=== PATIENT | female | born 1975 | race African-American/Black ===

== ENCOUNTER 2016-11-29 10:40 | Emergency (ER) | payer OTHER ==
[2016-11-29] MEDS ORDERED: NS 0.9% 1000 ML* 1,000 ML BOLUS ONE (11:16)
[2016-11-29] MEDS ORDERED: diPHENhydraMINE IV* 50 MG/ML 1 ml VIAL (BENADRYL) IV ONE (11:16)
[2016-11-29] MEDS ORDERED: Morphine INJ* 2 MG/ML 1 ML CARPUJECT IV ONE (11:17)
[2016-11-29] MEDS ORDERED: Ondansetron INJ* 2 MG/ML VIAL IV ONE (11:17)
--- NOTE | 2016-11-29 12:11 | UC ---
Headache HPI - HPI Summary HPI Summary: 41 YO FEMALE WITH A HX OF MIGRAINES SINCE A TEEN NO F/C (+) PHOTO/PHONOPHOBIA N/V TAKING EXCESSIVE DOSES OF ALEVE WITHOUT RELIEF NO CT OF BRAIN RECENTLY...ONE DONE A TEEN - History Of Current Complaint Chief Complaint: UCHeadache Stated Complaint: MIGRAINE HEADACHE Time Seen by Provider: 11/29/16 11:10 Hx Obtained From: Patient Hx Last Menstrual Period: 11/07/16 Onset/Duration: Gradual Onset, Lasting Days - 3 Onset Of Symptoms: Gradual Initially Headache Was: Severe Currently Pain Is: Severe Pain Intensity: 8 Pain Scale Used: 0-10 Numeric Timing: Constant Character: Throbbing Location of Headache: Temporal Allevating Factors: Nothing Associated Signs And Symptoms: Positive: Nausea, Vomiting. Negative: Dizziness , Seizure, Sinus Pressure, Neck Pain, Neck Stiffness, Decreased LOC, Visual Changes - Risk Factors SAH Risk Factors: -[place] SDH Risk Factors: Negative Temporal Arteritis Risk Factors: Negative - Allergies/Home Medications Allergies/Adverse Reactions: Allergies Allergy/AdvReac Type Severity Reaction Status Date / Time No Known Allergies Allergy Verified 11/29/16 11:02 Home Medications: Home Medications Cyclobenzaprine TAB* [Flexeril TAB*] 10 mg PO TID PRN 11/29/16 [History Confirmed 11/29/16] Divalproex DR TAB(*) [Depakote DR(*)] 500 mg PO BID 11/29/16 [History Confirmed 11/29/16] Lisinopril/HCTZ 20/12.5(NF) [Zestoretic 20/12.5(NF)] 1 tab PO DAILY 11/29/16 [ History Confirmed 11/29/16] Zolpidem TAB* [Ambien TAB*] 10 mg PO BEDTIME PRN 11/29/16 [History Confirmed 07/08] traZODone TAB* [Desyrel TAB*] 100 mg PO BEDTIME 11/29/16 [History Confirmed 07/08] PMH/Surg Hx/FS Hx/Imm Hx Endocrine History Of: Denies: Diabetes, Thyroid Disease, Hyperthyroidism, Hypothyroidism, Dyslipidemia Cardiovascular History Of: Reports: Cardiac Disorders - heart murmur, Hypertension Denies: Pacemaker/ICD, Myocardial Infarction, Congestive Heart Failure, Atrial Fibrillation, Deep Vein Thrombosis, Bleeding Disorders Respiratory History Of: Denies: COPD, Asthma GI/ History Of: Denies: Gastroesophageal Reflux, Ulcer, Gastrointestinal Bleed, Gall Bladder Disease, Kidney Stones, Diverticulitis, Renal Disease, Urosepsis Neurological History Of: Denies: TIA, CVA, Dementia, Seizures, Migraine Psychological History Of: Reports: Bipolar Disorder Denies: Anxiety, Depression, Schizophrenia, Post Traumatic Stress Disorder Cancer History Of: Denies: Lung Cancer, Colorectal Cancer, Breast Cancer, Prostate Cancer, Cervical Cancer - Surgical History Surgical History: Yes Surgery Procedure, Year, and Place: ; tonsils - Family History Known Family History: Positive: Hypertension, Other - CVA - Social History Alcohol Use: Occasionally Substance Use Type: None Substance Use Comment - Amount & Last Used: occassional Smoking Status (MU): Light Every Day Tobacco Smoker Type: Cigarettes Amount Used/How Often: 1/ PPD Length of Time of Smoking/Using Tobacco: 15 + yrs - Immunization History Most Recent Influenza Vaccination: Not the Season Review of Systems Constitutional: Negative Skin: Negative Eyes: Photophobia ENT: Negative Respiratory: Negative Cardiovascular: Negative Gastrointestinal: Vomiting Genitourinary: Negative Motor: Negative Neurovascular: Negative Musculoskeletal: Negative Neurological: Headache Psychological: Negative All Other Systems Reviewed And Are Negative: Yes Physical Exam Triage Information Reviewed: Yes Appearance: Well-Nourished, Pain Distress Vital Signs: Initial Vital Signs Temp 99.6 F 11/29/16 10:59 Pulse 80 11/29/16 10:59 Resp 18 11/29/16 10:59 BP 160/110 11/29/16 10:59 Pulse Ox 100 11/29/16 10:59 Vital Signs Reviewed: Yes Eyes: Positive: Conjunctiva Clear ENT: Positive: Normal ENT inspection Dental: Negative: Abscess @ Neck: Positive: Supple, Nontender, No Lymphadenopathy Respiratory: Positive: Lungs clear, Normal breath sounds, No respiratory distress, No accessory muscle use Cardiovascular: Positive: RRR, No Murmur Musculoskeletal: Positive: ROM Intact, No Edema Neurological: Positive: Alert, Muscle Tone Normal, Other: - gcs 15/15, NON FOCAL NEURO EXAM Psychological: Positive: Age Appropriate Behavior, Abnormal Response To Family Skin Exam: Normal Re-Evaluation - Re-Evaluation First Eval Re-Evaluation Time: 12:45 Change: Improved - WANTS TO GO HOME....PAIN NOW 01/29 Headache Course/Dx - Course Course Of Treatment: ct (-). advised not to take aleve for a week - Differential Dx/Diagnosis Provider Diagnoses: ACUTE HEADACHE (?MIGRAINE) Discharge - Discharge Plan Condition: Improved Disposition: HOME Prescriptions: Butalb/Acetamin/Caff TAB* [Fioricet TAB*] 1 - 2 tab PO Q4HR PRN #12 tab MDD 6 PRN Reason: Headache Ondansetron TAB* [Zofran Tab*] 4 mg PO Q6H PRN #10 tab PRN Reason: Nausea Patient Education Materials: Migraine Headache (ED) Forms: *Work Release Referrals: SHAD Ohara [Primary Care Provider] - 1 Day (if not better)
[2016-11-29 12:30] VITALS: BP 173/92
--- NOTE | 2016-11-29 12:34 | RAD ---
HISTORY: Headache COMPARISONS: June 13, 2007 TECHNIQUE: Multiple contiguous axial CT scans were obtained of the head without intravenous contrast. FINDINGS: HEMORRHAGE/INFARCT: There is no hemorrhage or acute infarct. MASSES/SHIFT: There is no mass or shift. EXTRA-AXIAL SPACES: There are no extra-axial fluid collections. SULCI AND VENTRICLES: The sulci and ventricles are normal in size and position for the patient's stated age. CEREBRUM: There are no focal parenchymal abnormalities. BRAINSTEM: There are no focal parenchymal abnormalities. CEREBELLUM: There are no focal parenchymal abnormalities. VESSELS: The vessels are grossly normal. PARANASAL SINUSES: The paranasal sinuses are clear. ORBITS: The orbits are unremarkable. BONES AND SOFT TISSUE: No bone or soft tissue abnormalities are noted. OTHER: None IMPRESSION: NO ACUTE INTRACRANIAL PATHOLOGY.
== END 2016-11-29 13:02 | disposition home or self-care (01) ==
LOC: UCCORT 10:40
DX: R51 Headache (principal); I10 Essential (primary) hypertension; R01.1 Cardiac murmur, unspecified; F31.9 Bipolar disorder, unspecified; F17.210 Nicotine dependence, cigarettes, uncomplicated
CPT/HCPCS: 70450; 96361; 96374; 96375; 99212; G0463; J1200; J2270; J2405

== ENCOUNTER 2017-10-11 18:44 | Emergency (ER) | payer OTHER ==
--- NOTE | 2017-10-11 19:31 | UC ---
Headache HPI - HPI Summary HPI Summary: 42 year old female presents with worse headache of her life and hypertension > 200/100. I will send her to the ER. - History Of Current Complaint Stated Complaint: MIGRAINE Time Seen by Provider: 10/11/17 19:30 Hx Obtained From: Patient Hx Last Menstrual Period: 11/07/16 Onset/Duration: Sudden Onset Initially Headache Was: Initial Pain Scale(0-10)= - 8, Severe Currently Pain Is: Current Pain Scale(0-10)= - 8, Severe - Allergies/Home Medications Allergies/Adverse Reactions: Allergies Allergy/AdvReac Type Severity Reaction Status Date / Time No Known Allergies Allergy Verified 10/11/17 19:27 PMH/Surg Hx/FS Hx/Imm Hx Previously Healthy: Yes - Surgical History Surgical History: Yes Surgery Procedure, Year, and Place: ; tonsils - Family History Known Family History: Positive: Hypertension, Other - CVA - Social History Alcohol Use: Occasionally Substance Use Type: None Substance Use Comment - Amount & Last Used: occassional Smoking Status (MU): Light Every Day Tobacco Smoker Type: Cigarettes Amount Used/How Often: 1/7 PPD Length of Time of Smoking/Using Tobacco: 15 + yrs - Immunization History Most Recent Influenza Vaccination: Not the 2016/2016 Season Review of Systems Constitutional: Negative Skin: Negative Eyes: Negative ENT: Negative Respiratory: Negative Cardiovascular: Negative Gastrointestinal: Negative Genitourinary: Negative Motor: Negative Neurovascular: Negative Musculoskeletal: Negative Neurological: Headache Psychological: Negative All Other Systems Reviewed And Are Negative: Yes Physical Exam Triage Information Reviewed: Yes Eye Exam: Normal ENT Exam: Normal Dental Exam: Normal Neck exam: Normal Neck: Positive: 1 Respiratory Exam: Normal Cardiovascular Exam: Normal Abdominal Exam: Normal Musculoskeletal Exam: Normal Neurological Exam: Normal Psychological Exam: Normal Skin Exam: Normal Headache Course/Dx - Differential Dx/Diagnosis Provider Diagnoses: HYPERTENSION. HEADACHE Discharge - Discharge Plan Condition: Stable Disposition: OTHER Discharge Disposition Comment: PATIENT SUGESTED TO GO TO THE ER. Patient Education Materials: Hypertension (ED), General Headache (ED) Referrals: SHAD Ohara [Medical Doctor] - Additional Instructions: patient suggested to go to the er.
[2017-10-11 19:34] VITALS: BP 218/93
== END 2017-10-11 19:47 ==
LOC: UCCORT 18:44
DX: R51 Headache (principal); I10 Essential (primary) hypertension; F17.210 Nicotine dependence, cigarettes, uncomplicated
CPT/HCPCS: 99212; G0463

== ENCOUNTER 2018-02-08 21:00 | Emergency (ER) | payer OTHER ==
[2018-02-08 21:15] VITALS: BP 197/126
--- NOTE | 2018-02-08 21:56 | UC ---
General HPI - HPI Summary HPI Summary: This is a 42 yo female with HTN and chronic back pain who presents with multiple complaints. 1. She has had sinus congestion, cough and sinus pain x 2 weeks. No fevers 2. She has a rash that has become progressively worse that she believed was due to ringworm. She has trialed multiple OTC creams without relief. She is complaining of severe itching. The rash started as a patch on her R shoulder a couple of weeks ago. 3. She has previously been treated for HTN, but lost her PCP and ran out of meds last month. She is unsure of what she has taken previously. She has occasional HAs, no CP. Occasional SOB, but no edema. - History of Current Complaint Chief Complaint: UCRespiratory Stated Complaint: POSS RINGWORM,&ST,COUGH Hx Last Menstrual Period: 01/16/18 Pain Intensity: 8 - Allergy/Home Medications Allergies/Adverse Reactions: Allergies Allergy/AdvReac Type Severity Reaction Status Date / Time No Known Allergies Allergy Verified 02/08/18 21:14 Home Medications: Home Medications Ibuprofen TAB* [Motrin TAB* 800 MG] 800 mg PO ONCE PRN 02/08/18 [History Confirmed 02/08/18] PMH/Surg Hx/FS Hx/Imm Hx Cardiovascular History: Hypertension - Surgical History Surgical History: Yes Surgery Procedure, Year, and Place: ; tonsils - Family History Known Family History: Positive: Hypertension, Other - CVA - Social History Alcohol Use: Occasionally Substance Use Type: None Substance Use Comment - Amount & Last Used: occassional Smoking Status (MU): Current Every Day Smoker Type: Cigarettes Amount Used/How Often: 1 PACK/WEEK Length of Time of Smoking/Using Tobacco: 15 + yrs - Immunization History Most Recent Influenza Vaccination: Not the 2015/2016 Season Review of Systems Constitutional: Fatigue Skin: Rash Eyes: Negative ENT: Sore Throat, Sinus Congestion, Sinus Pain/Tenderness Respiratory: Negative Cardiovascular: Negative Gastrointestinal: Negative Genitourinary: Negative Motor: Negative Neurovascular: Negative Musculoskeletal: Negative Neurological: Negative Psychological: Negative Is Patient Immunocompromised?: No All Other Systems Reviewed And Are Negative: Yes Physical Exam Triage Information Reviewed: Yes Appearance: Other: - anxious Vital Signs: Initial Vital Signs Temp 99.2 F 02/08/18 21:08 Pulse 82 02/08/18 21:08 Resp 18 02/08/18 21:08 BP 197/126 02/08/18 21:08 Pulse Ox 100 02/08/18 21:08 Vital Signs Reviewed: Yes ENT: Positive: Pharynx normal, TMs normal, Sinus tenderness, Other - nasal turbinates are inflammed Neck: Positive: Supple, Nontender, No Lymphadenopathy Respiratory Exam: Normal Respiratory: Positive: Lungs clear, Normal breath sounds. Negative: Crackles, Rhonchi, Stridor, Wheezing Cardiovascular: Positive: RRR, No Murmur Abdominal Exam: Normal Abdomen Description: Positive: Nontender Musculoskeletal Exam: Normal Musculoskeletal: Positive: Strength Intact Neurological Exam: Normal Neurological: Positive: Alert Psychological: Positive: Other: - very anxious, pressured speech Skin Exam: Normal Skin: Positive: rashes - patches of hyperpigmentation across back Course/Dx - Course Course Of Treatment: This is a 42 yo female with multiple complaints. Referral to [facility] De La Cruz completed to help establish with a PCP - Differential Dx - Multi-Symptom Provider Diagnoses: 1. Acute sinusitis - Augmentin x 10d. 2. HTN - start amlodipine (unable to verify prior meds as pharmacy is closed). 3. Rash appears to pityriasis rosea - self resolving in 4-6 weeks - prescribed topical steroid for itching relief and recommend prn benadryl. 4. Need PCP. 5. Chronic back pain - given Rx for Flexeril Discharge - Sign-Out/Discharge Documenting (check all that apply): Discharge - Discharge Plan Condition: Stable Disposition: HOME Prescriptions: amLODIPine TAB* [Norvasc 5 mg TAB*] 5 mg PO DAILY #30 tab Amoxicillin/Clavulanate TAB* [Augmentin TAB 875*] 875 mg PO BID #20 tab Cyclobenzaprine TAB* [Flexeril 10 MG TAB*] 10 mg PO TID PRN #30 tab PRN Reason: pain/spasm Triamcinolone 0.5% CREAM(NF) [Triamcinolone 0.5% CREAM*] 1 applic TOPICAL BID # 1 tube Patient Education Materials: Sinusitis (ED), Hypertension (ED), Pityriasis rosea (ED) Forms: *Work Release Referrals: No Primary Care Phys,NOPCP [Primary Care Provider] - Additional Instructions: Instructions: 1. Start medications as prescribed 2. Call Nadya De La Cruz to help establish care with primary care provider 3. Use steroid cream to help with itching, you can also use Benadryl if you require additional relief from itching - Billing Disposition and Condition Condition: STABLE Disposition: HOME
== END 2018-02-08 21:56 | disposition home or self-care (01) ==
LOC: UCEAST 21:00
DX: J01.90 Acute sinusitis, unspecified (principal); I10 Essential (primary) hypertension; R21 Rash and other nonspecific skin eruption; M54.9 Dorsalgia, unspecified; G89.29 Other chronic pain; F17.210 Nicotine dependence, cigarettes, uncomplicated
CPT/HCPCS: 99212; G0463

== ENCOUNTER 2019-06-27 19:23 | Emergency (ER) | payer SELFPAY ==
--- NOTE | 2019-06-27 19:42 | UC ---
Hand/Wrist HPI - HPI Summary HPI Summary: 43 yo female presents with RIGHT middle finger pain. She tells me that she works at a [employer] and about 2 weeks ago a glass broke and she cut the volar aspect of her right middle finger. Since that time she has had pain in the area. Over the last few days the pain has significantly increased and she has developed a white area around the site. She poked it at home and had some drainage - since that time, pain has further increased. She is right handed. Unsure date of her last tetanus. No fevers or chills. - History Of Current Complaint Stated Complaint: GLASS IN FINGER Time Seen by Provider: 06/27/19 19:42 Hx Obtained From: Patient Onset/Duration: Gradual Onset Severity Initially: Moderate Severity Currently: Severe Pain Intensity: 10 Pain Scale Used: 0-10 Numeric - Allergies/Home Medications Allergies/Adverse Reactions: Allergies Allergy/AdvReac Type Severity Reaction Status Date / Time No Known Allergies Allergy Verified 06/27/19 19:48 Home Medications: Home Medications Naproxen Sodium [Aleve] 2 tab PO ONCE PRN 06/27/19 [History Confirmed 06/27/19] Vitamins* 06/27/19 [History] PMH/Surg Hx/FS Hx/Imm Hx - Additional Past Medical History Additional PMH: None - Surgical History Surgical History: Yes Surgery Procedure, Year, and Place: c section, tonsilectomy - Family History Known Family History: Positive: Non-Contributory - Social History Occupation: Employed Full-time Lives: With Family Alcohol Use: Occasionally Substance Use Type: None Smoking Status (MU): Former Smoker Review of Systems All Other Systems Reviewed And Are Negative: Yes Constitutional: Positive: Negative Skin: Positive: Other - Right middle finger abscess Respiratory: Positive: Negative Cardiovascular: Positive: Negative Musculoskeletal: Positive: Other: - Right middle finger pain Neurological: Positive: Negative Psychological: Positive: Negative Physical Exam - Summary Physical Exam Summary: GENERAL: NAD. WDWN. No pain distress. SKIN: RIGHT MIDDLE FINGER: Volar aspect overlying PIP with 3mm puncture wound. 1.0cm diameter area of white appearing skin that is TTP. Mild TTP at flexor surface extending to MCP without erythema or edema. NECK: Supple. Nontender. No lymphadenopathy. CHEST: No accessory muscle use. Breathing comfortably and in no distress. CV: Pulses intact. Cap refill <2seconds MSK: FROM at right middle finger MCP, PIP, and DIP NEURO: Alert. PSYCH: Age appropriate behavior. Hand/Wrist Course/Dx - Course Course Of Treatment: The procedure was explained to the pt and all questions were answered. A time out was performed, witnessed, and signed. The area was cleansed with an alcohol pad. 0.5mL of 0.25% bupivacaine without epi was administered as a digital block to the right middle digit base and good anesthetization was achieved. A #11 blade was used to spencer the central most part of the abscess, scant white purulent matter was expressed. Pt tolerated well. Will place her on Augmentin. tdap updated today. Will also rx for percocet for her discomfort. Strongly recommended f/u with Ortho tomorrow as she is beginning to have some tenderness along the flexor tendon, but remains afebrile and has FROM. XR wet read with ?FB at the flexor aspect of the PIP joint Advised that if she cannot see Orthopedics within 1-2 days - to go to the ER for further evaluation - Differential Dx/Diagnosis Provider Diagnosis: Abscess of finger Discharge - Sign-Out/Discharge Documenting (check all that apply): Patient Departure All imaging exams completed and their final reports reviewed: No - Discharge Plan Condition: Stable Disposition: HOME Prescriptions: Amoxicillin/Clavulanate TAB* [Augmentin TAB 875*] 875 mg PO BID #14 tab Oxycodone HCl/Acetaminophen [Percocet 5-325 mg Tablet] 1 each PO Q8H PRN #9 tablet MDD 3 PRN Reason: Pain - Severe Patient Education Materials: Abscess (ED) Forms: *Work Release Referrals: No Primary Care Phys,NOPCP [Primary Care Provider] - Billy Freeman MD [Medical Doctor] - 1 Day Additional Instructions: If you develop a fever, shortness of breath, chest pain, new or worsening symptoms - please call your PCP or go to the ED immediately. Your blood pressure was high at todays visit. Please see your primary provider within 4 weeks for recheck and re-evaluation. 1) Keep the area bandaged at all times and change the dressing daily 2) I recommend that you call Orthopedics to schedule an appointment in 1-2 days for further evaluation of your finger as this may need further drainage. - Billing Disposition and Condition Condition: STABLE Disposition: Home - Attestation Statements Provider Attestation: Per institutional requirements, I have reviewed the chart, however, I was not consulted specifically or made aware of this patient by the midlevel provider. I did not personally evaluate, interact with , or disposition this patient.
[2019-06-27 19:49] VITALS: BP 158/95
[2019-06-27] MEDS ORDERED: Bupivacaine 0.25% SDV PF* 10 ML VIAL INJ ONE (19:57)
[2019-06-27] MEDS ORDERED: Tetan/Diph/Pertus SYR(Tdap)* 0.5 ML SYR(BOOSTRIX) use SYR IM ONE (19:58)
[2019-06-27] MEDS ORDERED: HYDROcodone/ACETAMIN 5-325 MG* 1 TAB PO ONE (20:42)
--- NOTE | 2019-06-28 13:22 | UC ---
- Progress Note Progress Note: RADIOLOGY REPORT REVIEWED: A 1 MM DENSITY ALONG THE VOLAR ASPECT OF THE THIRD PIP IS FAVORED TO BE YARD ASSISTANT OF DEGENERATIVE CHANGE OR PRIOR TRAUMA. HOWEVER, GIVEN THE HISTORY, A RADIOPAQUE FOREIGN BODY CANNOT EXCLUDED. NO CHANGE IN MGMT. F/U ORTHO ADVISED AT OFFICE VISIT. Course/Dx - Diagnoses Provider Diagnoses: Abscess of finger Discharge - Sign-Out/Discharge Documenting (check all that apply): Post-Discharge Follow Up All imaging exams completed and their final reports reviewed: Yes - Discharge Plan Condition: Stable Disposition: HOME Prescriptions: Amoxicillin/Clavulanate TAB* [Augmentin TAB 875*] 875 mg PO BID #14 tab Oxycodone HCl/Acetaminophen [Percocet 5-325 mg Tablet] 1 each PO Q8H PRN #9 tablet MDD 3 PRN Reason: Pain - Severe Patient Education Materials: Abscess (ED) Forms: *Work Release Referrals: Billy Freeman MD [Medical Doctor] - 1 Day No Primary Care Phys,NOPCP [Primary Care Provider] - Additional Instructions: If you develop a fever, shortness of breath, chest pain, new or worsening symptoms - please call your PCP or go to the ED immediately. Your blood pressure was high at todays visit. Please see your primary provider within 4 weeks for recheck and re-evaluation. 1) Keep the area bandaged at all times and change the dressing daily 2) I recommend that you call Orthopedics to schedule an appointment in 1-2 days for further evaluation of your finger as this may need further drainage. - Billing Disposition and Condition Condition: STABLE Disposition: Home
== END 2019-06-27 20:55 | disposition home or self-care (01) ==
LOC: MERGE 19:23 → UCEAST 19:23
DX: L02.511 Cutaneous abscess of right hand (principal)
CPT/HCPCS: 10060; 73140; 90471; 90715; 99212; G0463; J3490